=== PATIENT | male | born 1960 | race Asian ===

== ENCOUNTER 2019-08-24 21:47 | Inpatient (IN) | payer MEDICARE ==
[~2019-08-24] VITALS: Ht 167.6 cm; Wt 63.5 kg
[~2019-08-24 21:47] MED LIST: Aspirin EC81 MG; GLIP10; INSDET100; INSLI100I; LEVO.5OPSO; METF500; METF500 PO; PRAV20; Prinivil10 MG
[2019-08-24 22:42] LABS: BASOPHILS ABSOLUTE AUTO 0.07 K/mm3 (0.00-0.23); BASOPHILS PERCENT AUTO 0 % (0-2); EOSINOPHILS PERCENT AUTO 0 % (0-6); Hematocrit 37.2 % (37.0-53.0); IMMATURE GRAN ABSOLUTE AUTO 0.43 K/mm3 (0.00-0.10); IMMATURE GRAN PERCENT AUTO 1 % (0-1); LYMPHOCYTES ABSOLUTE AUTO 0.87 K/mm3 (0.84-5.20); LYMPHOCYTES PERCENT AUTO 2 % (21-46); MONOCYTES ABSOLUTE AUTO 1.78 K/mm3 (0.16-1.47); MONOCYTES PERCENT AUTO 5 % (4-13); Mean Corpuscular HGB 20.5 pg (26.0-34.0); Mean Corpuscular HGB Conc 32.3 g/dL (31.5-36.5); Mean Corpuscular Volume 64 fL (80-100); Mean Platelet Volume 9.6 fL (9.1-12.4); NEUTROPHILS ABSOLUTE AUTO 32.63 K/mm3 (1.96-9.15); NEUTROPHILS PERCENT AUTO 91 % (41-73); Platelet Count 501 K/mm3 (150-400); RDW Coefficient Variation 14.1 % (11.7-14.2); RDW Standard Deviation 30.9 fL (35.1-46.3); Red Blood Cell Count 5.85 M/mm3 (4.30-5.90); White Blood Cell Count 35.78 K/mm3 (4.00-11.30)
[2019-08-24 22:51] LABS: Anion Gap 17 mmol/L (6-16); Blood Urea Nitrogen 22 mg/dL (8-24); Bun/Creatinine Ratio 30.5 (12.0-20.0); CO2, Blood 23 mmol/L (21-32); Calcium, Blood 8.5 mg/dL (8.5-10.1); Chloride, Blood 91 mmol/L (98-108); Creatinine, Blood 0.72 mg/dL (0.60-1.20); Glomerular Filtration Rate >60 (60-); Glucose, Blood 310 mg/dL (70-99); Potassium, Blood 3.5 mmol/L (3.5-5.5); Sodium, Blood 131 mmol/L (136-145)
--- NOTE | 2019-08-25 01:45 | NUR ---
0040 59 Y/O MALE ADMITTED TO ROOM 302 PER CART FROM ER. 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 DENIES NEED FOR PAIN MEDS AT THIS TIME. SISTER AT SIDE FOR NIGHT.
--- NOTE | 2019-08-25 04:18 | NUR ---
SHIFT SUMMARY: 59 Y/O MALE RESTED COMFORTABLY ALL SHIFT, LEFT FOOT DRESSING DRY AND INTACT, SISTER AT SIDE ALL NIGHT, DENIES PAIN OR NAUSEA, NUMBNESS TO LEFT LEG VOICED, BED LOW POSITION, CALL LIGHT AT SIDE.
[2019-08-25 04:41] LABS: Hematocrit 37.1 % (37.0-53.0); Hemoglobin 11.9 g/dL (13.5-17.5); Mean Corpuscular HGB 20.3 pg (26.0-34.0); Mean Corpuscular HGB Conc 32.1 g/dL (31.5-36.5); Mean Corpuscular Volume 63 fL (80-100); Mean Platelet Volume 9.1 fL (9.1-12.4); Platelet Count 466 K/mm3 (150-400); RDW Coefficient Variation 14.1 % (11.7-14.2); RDW Standard Deviation 30.5 fL (35.1-46.3); Red Blood Cell Count 5.85 M/mm3 (4.30-5.90); White Blood Cell Count 33.85 K/mm3 (4.00-11.30)
[2019-08-25 05:15] LABS: Alanine Aminotransfer (ALT/SGP <6 U/L (12-78); Albumin, Blood 1.9 g/dL (3.4-5.0); Albumin/Globulin Ratio 0.4 (0.8-1.8); Alk Phos 81 U/L (50-136); Anion Gap 12 mmol/L (6-16); Aspartate Aminotrans (AST/SGOT 10 U/L (12-37); Bilirubin, Total 0.5 mg/dL (0.1-1.0); Blood Urea Nitrogen 18 mg/dL (8-24); CO2, Blood 28 mmol/L (21-32); Calcium, Blood 8.5 mg/dL (8.5-10.1); Chloride, Blood 95 mmol/L (98-108); Creatinine, Blood 0.67 mg/dL (0.60-1.20); Globulin, Blood 4.9 g/dL (2.2-4.0); Glomerular Filtration Rate >60 (60-); Glucose, Blood 223 mg/dL (70-99); Potassium, Blood 3.2 mmol/L (3.5-5.5); Sodium, Blood 135 mmol/L (136-145); Total Protein, Blood 6.8 g/dL (6.4-8.2)
--- NOTE | 2019-08-25 11:51 | NUR ---
Patient is lying in bed and alert. Patient openly shares about his [place] spiritual background but states that he finds no inspiration from it nor does he find any strength from Judeo-Muslim warren traditions. Patient finds encouragement from studying science and the universe. He is wanting peace in the world and in his own heart and mind. I provide empathic listening, companionship, emotional support and spiritual guidance. Patient voices appreciation for the visit. I will continue to remain available to patient and family.
[2019-08-25 16:32] LABS: Vancomycin, Trough 16.1 ug/mL (5.0-10.0)
--- NOTE | 2019-08-25 19:00 | NUR ---
PT. LYING QUIETLY, FAMILY AT BEDSIDE. PT. DENIES NEED OF PAIN MEDS, FOOT IS NUMB. PT. TO BE TRANSFERRED TONIGHT JAGDISH A BED BECOMES AVAILABLE WE DO NOT HAVE A LATHE OPERATOR CONTACT LENS TO DO AMPUTATION OF THE FOOR, WE ARE WAITING ON A BED AT THIS TIME. FAMILY IS AWARE AND SISTER WILL BE GOING UP WHEN HE DOES, BY HER PRIVATE CAR. PT. HAS BEEN NPO SINCE HE ARRIVED. TO BE SENT WITH NS RUNNING VIA IV.
--- NOTE | 2019-08-25 23:40 | NUR ---
DISCHARGE NOTE: ASSUMED CARE OF THE PATIENT AROUND 1900. HE WAS LAYING IN HIS ROOM RESTING, SISTER AT BEDSIDE. HE WAS AWAITING FOR A BED TO OPEN AT [facility] IN [place]. PATIENT AND SISTER WERE BOTH AWARE THAT TRANSFER WILL OCCUR TONIGHT WHEN THE BED OPENED. PATIENT IS BLIND BOTH EYES DUE TO HIS DIABETES, HE WAS ALERT AND ORIENTED, PLEASANT. HE DENIED PAIN OR DISCOMFORT, ESPECIALLY IN HIS LEFT FOOT. LEFT FOOT WAS WRAPPED WITH GAUZE, DRESSING WAS INTACT AND CLEAN. RIGHT LEG HAS SMALL CLOSED ULCERS NO DRAINAGE. LUNG SOUNDS WERE CLEAR THROUGHOUT, HR REGULAR. IV INFUSING WELL THROUGHOUT THE TIME HE WAS HERE. HE DENIED ANY SOB OR CONGESTION. PATIENT WAS NPO FOR POSSIBLE PROCEDURE. MEDS WERE ADMINISTERED PER EMAR. WAITER/WAITRESS COUNTER ANDRES ASSISTED WITH [employer] TRANSFER PAPERWORK AND PROCESS. REPORT WAS GIVEN TO ISIAH CASTANEDA AT [facility] FOR THE TRANSFER. ABULANCE ARRIVED, PATIENT TRANFERRED TO [facility], PATIENT DISCHARGED AT 2340.
== END 2019-08-25 23:40 | disposition short-term general hospital (02) | DRG 871 ==
LOC: ER 21:47 → MEDS 23:13
PROVIDERS: Emergency Medicine; ADMIT Internal Medicine
DX: A41.9 Sepsis, unspecified organism (principal); A48.0 Gas gangrene; M86.9 Osteomyelitis, unspecified; E11.52 Type 2 diabetes mellitus with diabetic peripheral angiopathy with gangrene; L03.116 Cellulitis of left lower limb; Z79.4 Long term (current) use of insulin; Z79.82 Long term (current) use of aspirin; E11.65 Type 2 diabetes mellitus with hyperglycemia; H40.9 Unspecified glaucoma; F17.210 Nicotine dependence, cigarettes, uncomplicated; E11.21 Type 2 diabetes mellitus with diabetic nephropathy; E11.319 Type 2 diabetes mellitus with unspecified diabetic retinopathy without macular edema; E11.69 Type 2 diabetes mellitus with other specified complication; E87.6 Hypokalemia; E11.621 Type 2 diabetes mellitus with foot ulcer; L97.523 Non-pressure chronic ulcer of other part of left foot with necrosis of muscle; E78.5 Hyperlipidemia, unspecified; E11.51 Type 2 diabetes mellitus with diabetic peripheral angiopathy without gangrene
CPT/HCPCS: 36415; 73630; 80048; 80053; 80202; 82947; 83036; 83605; 85025; 85027; 85651; 86140; 87040; 93926; 96365; 99285-25; J0692; J2543; J3010; J3370; J3480; J7030

== ENCOUNTER → 2020-02-22 | Outpatient (CLI) | payer MEDICARE | END | disposition home or self-care (01) | LOC: LAB SHORT 13:53 → LAB 13:53 | DX: L08.9 Local infection of the skin and subcutaneous tissue, unspecified (principal) | CPT/HCPCS: 87070; 87205 ==

== ENCOUNTER 2020-08-02 07:14 | Day surgery (SDC) | payer MEDICARE ==
[~2020-08-02] VITALS: Ht 170.2 cm; Wt 87.5 kg
[~2020-08-02 07:14] MED LIST changes: +BASAGLAR K100 UNIT/1 SC; +Fludrocortison0.1 MG PO; +GABA100 PO; +HUMALOG KW100 UNIT/1 SQ; +MAGNESIUM OXID500 MG PO; +MIDO5 PO; +POTCHL20ER PO
== END 2020-08-02 10:00 | disposition home or self-care (01) ==
LOC: ORSCSDS 07:14
PROVIDERS: Ophthalmology
PROC: 08RJ3JZ Replacement of Right Lens with Synthetic Substitute, Percutaneous Approach (ICD-10-PCS; principal; 2020-08-02 08:30)
DX: H25.11 Age-related nuclear cataract, right eye (principal); Z87.891 Personal history of nicotine dependence; E11.9 Type 2 diabetes mellitus without complications; E78.5 Hyperlipidemia, unspecified; E66.9 Obesity, unspecified; Z68.30 Body mass index [BMI] 30.0-30.9, adult; Z79.4 Long term (current) use of insulin; Z79.899 Other long term (current) drug therapy
CPT/HCPCS: 82947; J2001; J2250; J3010; J3300; J7040; V2632

== ENCOUNTER → 2020-09-08 | Outpatient (CLI) | payer MEDICARE ==
[~2020-09-08] MED LIST changes: +Midodrine HCl10 MG PO
== END | disposition home or self-care (01) ==
LOC: PLD 14:10 → LAB SHORT 14:10
DX: B35.1 Tinea unguium (principal); L60.2 Onychogryphosis
CPT/HCPCS: 88305; 88312

== ENCOUNTER 2020-11-15 08:32 | Day surgery (SDC) | payer MEDICARE, OTHER ==
[~2020-11-15] VITALS: Ht 170.2 cm; Wt 90.1 kg
== END 2020-11-15 11:15 | disposition home or self-care (01) ==
LOC: ORSCSDS 08:32
PROVIDERS: Ophthalmology
PROC: 08RK3JZ Replacement of Left Lens with Synthetic Substitute, Percutaneous Approach (ICD-10-PCS; principal; 2020-11-15 10:00)
DX: H25.12 Age-related nuclear cataract, left eye (principal); E10.8 Type 1 diabetes mellitus with unspecified complications; Z79.4 Long term (current) use of insulin; Z79.899 Other long term (current) drug therapy; Z87.891 Personal history of nicotine dependence
CPT/HCPCS: 82947; J2001; J2250; J3010; J3301; J7040; V2632

== ENCOUNTER 2021-01-03 21:22 | Emergency (ER) | payer MEDICARE, OTHER ==
[~2021-01-03] VITALS: Ht 167.6 cm; Wt 86.2 kg
[2021-01-03] MEDS ORDERED: VICTOZA 2-0.6 MG/0.1 SC (21:38)
[2021-01-03] MEDS ORDERED: BUPROPION HCL150 MG PO (21:40)
[2021-01-03] MEDS ORDERED: [UNRECOGNIZED DRUG - CODE] (21:41)
[2021-01-03] MEDS ORDERED: BASAGLAR K100 UNIT/7 SC (21:42)
== END 2021-01-03 22:48 | disposition home or self-care (01) ==
LOC: ER 21:22
DX: T87.89 Other complications of amputation stump (principal); S80.822A Blister (nonthermal), left lower leg, initial encounter; E11.40 Type 2 diabetes mellitus with diabetic neuropathy, unspecified; E78.5 Hyperlipidemia, unspecified; E11.39 Type 2 diabetes mellitus with other diabetic ophthalmic complication; H42 Glaucoma in diseases classified elsewhere; F17.210 Nicotine dependence, cigarettes, uncomplicated; Z89.512 Acquired absence of left leg below knee; Z79.4 Long term (current) use of insulin; Z79.899 Other long term (current) drug therapy; Z23 Encounter for immunization; X58.XXXA Exposure to other specified factors, initial encounter
CPT/HCPCS: 90471; 90714; 99282-25

== ENCOUNTER 2021-02-23 17:45 | Emergency (ER) | payer MEDICARE, OTHER ==
[~2021-02-23] VITALS: Ht 172.7 cm; Wt 89.8 kg
[~2021-02-23 17:45] MED LIST changes: +BASAGLAR K100 UNIT/7 SC; +BUPROPION HCL150 MG PO; +VICTOZA 2-0.6 MG/0.1 SC; +[UNRECOGNIZED DRUG - CODE]
[2021-02-23 18:25] LABS: BASOPHILS ABSOLUTE AUTO 0.04 K/mm3 (0.00-0.23); BASOPHILS PERCENT AUTO 1 % (0-2); EOSINOPHILS ABSOLUTE AUTO 0.09 K/mm3 (0.00-0.68); EOSINOPHILS PERCENT AUTO 1 % (0-6); Hematocrit 42.1 % (37.0-53.0); Hemoglobin 13.5 g/dL (13.5-17.5); IMMATURE GRAN ABSOLUTE AUTO 0.01 K/mm3 (0.00-0.10); IMMATURE GRAN PERCENT AUTO 0 % (0-1); LYMPHOCYTES ABSOLUTE AUTO 0.69 K/mm3 (0.84-5.20); LYMPHOCYTES PERCENT AUTO 8 % (21-46); MONOCYTES ABSOLUTE AUTO 0.45 K/mm3 (0.16-1.47); MONOCYTES PERCENT AUTO 6 % (4-13); Mean Corpuscular HGB 21.2 pg (26.0-34.0); Mean Corpuscular HGB Conc 32.1 g/dL (31.5-36.5); Mean Corpuscular Volume 66 fL (80-100); Mean Platelet Volume 9.9 fL (9.1-12.4); NEUTROPHILS ABSOLUTE AUTO 6.89 K/mm3 (1.96-9.15); NEUTROPHILS PERCENT AUTO 84 % (41-73); Platelet Count 275 K/mm3 (150-400); RDW Coefficient Variation 16.2 % (11.7-14.2); RDW Standard Deviation 34.9 fL (35.1-46.3); Red Blood Cell Count 6.38 M/mm3 (4.30-5.90); White Blood Cell Count 8.17 K/mm3 (4.00-11.30)
[2021-02-23 18:53] LABS: Alanine Aminotransfer (ALT/SGP 97 U/L (12-78); Albumin, Blood 4.1 g/dL (3.4-5.0); Albumin/Globulin Ratio 1.1 (0.8-1.8); Alk Phos 84 U/L (50-136); Anion Gap 9 mmol/L (6-16); Aspartate Aminotrans (AST/SGOT 150 U/L (12-37); Bilirubin, Total 0.4 mg/dL (0.1-1.0); Blood Urea Nitrogen 38 mg/dL (8-24); CO2, Blood 23 mmol/L (21-32); Calcium, Blood 9.3 mg/dL (8.5-10.1); Chloride, Blood 108 mmol/L (98-108); Creatinine, Blood 0.84 mg/dL (0.60-1.20); Globulin, Blood 3.8 g/dL (2.2-4.0); Glomerular Filtration Rate >60 (60-); Glucose, Blood 235 mg/dL (70-99); Potassium, Blood 4.1 mmol/L (3.5-5.5); Sodium, Blood 140 mmol/L (136-145); Total Protein, Blood 7.9 g/dL (6.4-8.2)
[2021-02-23 19:46] LABS: International Normalized Ratio 0.96; Prothrombin Time Results 10.3 Sec (9.7-11.5)
[2021-02-23 20:04] LABS: Magnesium, Blood 2.2 mg/dL (1.6-2.4); Salicylate <1.7 mg/dL (2.8-20.0)
[2021-02-23 20:13] LABS: Acetaminophen, Random <2.0 ug/mL (10.0-30.0)
[2021-02-23] MEDS ORDERED: ONDA4ODT MM (20:53)
== END 2021-02-23 22:05 | disposition home or self-care (01) ==
LOC: ER 17:45
PROVIDERS: Emergency Medicine; Physician Assistant
DX: R11.2 Nausea with vomiting, unspecified (principal); R10.9 Unspecified abdominal pain; E11.42 Type 2 diabetes mellitus with diabetic polyneuropathy; E78.5 Hyperlipidemia, unspecified; E11.39 Type 2 diabetes mellitus with other diabetic ophthalmic complication; H42 Glaucoma in diseases classified elsewhere; Z79.4 Long term (current) use of insulin; Z79.899 Other long term (current) drug therapy
CPT/HCPCS: 36415; 80053; 82140; 83690; 83735; 84145; 84484; 85025; 85610; 93005; 93010; 96374; 96375; 99284-25; G0480; J2405; J2550; J7120